=== PATIENT | female | born 1970 | race Caucasian/White ===

== ENCOUNTER 2025-03-15 19:08 | Emergency (ER) | payer OTHER, SELFPAY ==
[2025-03-15 19:17] VITALS: BP 142/87
[2025-03-15 23:04] VITALS: BP 138/92
[2025-03-15 23:06] VITALS: BMI 28.6
--- NOTE | 2025-03-15 23:14 | ED.GENMED ---
History of Present Illness
General
Chief Complaint: Numbness
Source: patient
Exam Limitations: none
Time Seen by Provider: 03/15/25 22:50
Nursing documentation reviewed up to this point in time: agreed with
History of Present Illness
History of Present Illness:
Patient to ED with report of numbness and tingling to bilateral feet, arms. Symptoms started a few days ago. No fever/chills, recent illness. No swelling to extremities. No back or neck pain. No difficulty ambulating. Brought to ED by family for
eval.
Past History
Past History
ED Past Medical History: Other (anemia)
Review of Systems
Review of Systems
Allergies reviewed?: Yes
All Other Systems: ROS reviewed and negative except as documented in HPI and ROS
Constitutional: Reports no symptoms
EENT: Reports no symptoms
Respiratory: Reports no symptoms
Cardiac: Reports no symptoms
ABD/GI: Reports no symptoms
: Reports no symptoms
Musculoskeletal: Reports no symptoms
Skin: Reports no symptoms
Neurological: Reports numbness (numbness and tingling to feet, arms.)
Psychiatric: Reports no symptoms
Phy Exam
General Physical Exam
General Presentation: well appearing and no apparent distress
General age: appears stated age
General Skin: warm and dry
General Habitus: normal
General Mental: alert
Cardiovascular Exam
Cardiovascular Exam: regular rate/rhythm and no edema
Pulmonary Exam
Pulmonary Exam: lungs clear and no respiratory distress
Neurological Exam
Neurological Exam: alert, oriented x3, no motor deficits, no sensory deficits, speech normal and normal gait
Reflexes
Reflexes: +3: Left patellar and +3: Right patellar
Musculoskeletal Exam
Musculoskeletal Exam: full ROM, neuro vasc intact and other (equal strength, sensation bilaterally)
Skin Exam
Skin Exam: normal color, warm/dry, no rash and no petechia
Psychiatric Exam
Psychiatric Exam: normal mood/affect
Course
Orders/Labs/Results
Orders:
Orders
03/15/25 23:13
CT Head W/o Iv Contrast Urgent
Comment:
Reason For Exam: weakness
CRP [C-Reactive Protein] Urgent
Complete Blood Count/With Diff Urgent
Comprehensive Metabolic Panel Urgent
Sed Rate [Erythrocyte Sed Rate] Urgent
TSH Reflex To Free T4 Urgent
Abnormal Lab Results
03/16/25
00:05
RBC 4.05 L 10^6/uL
(4.20-5.40)
Hct 36.1 L %
(37.0-47.0)
ESR 21 H mm/hour
(0-20)
Chloride 109 H mmol/L
(98-107)
BUN 23 H mg/dl
(7-17)
Glucose 103 H mg/dl
(70-99)
03/16/25 00:05
03/16/25 00:05
Vital Signs
Initial and Last Documented VS:
Initial Vital Signs
Temp Pulse Resp BP Pulse Ox
98.2 F 83 18 142/87 96
03/15/25 19:17 03/15/25 19:17 03/15/25 19:17 03/15/25 19:17 03/15/25 19:17
Last Documented Vital Signs
Temp Pulse Resp BP Pulse Ox
98.2 F 83 18 128/68 99
03/15/25 19:17 03/15/25 19:17 03/15/25 19:17 03/16/25 01:00 03/16/25 01:40
*Radiology
Radiology exam reviewed: radiology read reviewed
*Pulse Oximetry
SaO2: 96
Oxygen Mode of Delivery: Room air
Patient hypoxic: no
*Critical Care Note
Total Time (30-74mins, 75-104mins- exclusive of procedures): Not Applicable
Update Note
Update Note:
patient to ED witth report of pins and needles to BLE,BUE. No weakness in extremities, no swelling. Full ROM to all extremities. NO back or neck pain. Labs CT reviewed with her. No findings to explain her symptoms. Will discharge home and she
will follow up with neurology for further evaluation of her symptoms. SHe was given instructions on s/s to return to ED and she is agreeable to plan
ED Attending Note
-
Portions of this chart may have been created with voice recognition software.� Occasional wrong word or��sound alike� substitutions may have occurred due to the inherent limitations of voice recognition software.
Discharge Plan
Departure
Patient Disposition: Home (Routine Discharge)
Date of Disposition: 03/16/25
Time of Disposition: 01:26
Patient with high blood pressure during this ER visit?: No
Condition: Good
Covid-19: Not Applicable
Discharge Problem:
Numbness and tingling
Instructions: Paresthesia (DC)
Prescriptions:
No Action
calcium carbonate [calcium] 1 TAB tablet
1 tab PO DAILY
Multivitamins 1 TAB tablet
1 tab PO DAILY
dexamethasone [Decadron] 6 MG tablet
6 mg PO DAILY Qty: 8 0RF
acetaminophen 325 MG tablet
650 mg PO Q4HPRN PRN (Reason: fever >/= 100.4F, mild pain) 0RF
dextromethorphan-guaifenesin 5 ML syrup
5 ml PO Q4HPRN PRN (Reason: COUGH) Qty: 30 0RF
Referrals:
Tanya Gipson MD [Non-Admitting Privileges, Neurology] - Call in 1-3 days for appt
Keiry Hadley DO [Family Provider, Family Practice]
Interventions
Interventions:
*Risk Screen - Suicide Last Done: 03/15/25 19:24
*General Assessment Last Done: 03/15/25 23:06
*Neglect/Abuse Screening Last Done: 03/15/25 19:24
*ED- Fall Risk Assessment Last Done: 03/15/25 23:06
*ED COVID-19 Vaccine History Last Done: 03/15/25 23:06
*ED Influenza Vaccine History Last Done: 03/15/25 23:06
*Nursing Disposition Last Done: 03/16/25 01:40
ED- Neurological Assessment Last Done: 03/15/25 23:06
Discharge Date and Time
Discharge Date/Time: 03/16/25 01:40
Print Language: [id number]
[2025-03-16 00:18] LABS: Hematocrit 36.1 % (37.0-47.0); Hemoglobin 12.1 g/dL (12.0-16.0); Mean Corp Hgb Conc. 33.5 g/dL (33.0-37.0); Mean Corpuscular Volume 89.1 fL (81.0-99.0); Nucleated Red Blood Cells % 0 %; Platelet Count 276 10^3/uL (130-400); Red Cell Dist. Width 12.3 % (11.5-14.5)
[2025-03-16 00:43] LABS: ALT (SGPT) 17 U/L (0-35); AST (SGOT) 23 U/L (14-36); Albumin 4.4 g/dl (3.5-5.0); Alkaline Phosphatase 58 U/L (38-126); Blood Urea Nitrogen 23 mg/dl (7-17); Calcium 9.3 mg/dl (8.4-10.2); Carbon Dioxide 25 mmol/L (22-30); Chloride 109 mmol/L (98-107); Estimated Creatinine Clearance 96 ml/min; Glucose 103 mg/dl (70-99); Potassium 4.0 mmol/L (3.5-5.1); Sodium 140 mmol/L (135-145); Total Protein 7.1 g/dl (6.3-8.2); eGFR > 60.00
[2025-03-16 00:47] LABS: C-Reactive Protein < 5.00 mg/L (0.0-10.00)
[2025-03-16 01:00] VITALS: BP 128/68
== END 2025-03-16 01:40 | disposition home or self-care (01) ==
LOC: EMR 19:08
PROVIDERS: Nurse Practitioner; EMERGENCY PHYSICIAN Student in an Organized Health Care Education/Training Program; FAMILY PHYSICIAN Family Medicine
DX: R20.2 Paresthesia of skin (principal)
CPT/HCPCS: 99284; 70450; 80053; 84443; 85025; 85652; 86140